=== PATIENT | female | born 2000 | race Caucasian/White ===

== ENCOUNTER 2022-02-12 11:18 | Day surgery (SDC) | payer OTHER ==
[2022-02-12 11:45] VITALS: BMI 30.1
[2022-02-12] MEDS ORDERED: hydrALAZINE 20 MG/ML VIAL SLOW IVP PRN (12:14)
[2022-02-12 13:24] LABS: Bilirubin Neg (Negative); Blood, Urine Negative (Negative); CAUTI Indications for Culture Pregnancy; Clarity Clear (Clear); Glucose, Urine (Dipstick) 250 mg/dL (Negative); Ketone, Urine 5 mg/dL (Negative); Leukocyte 25 (Negative); Nitrite Negative (Negative); Protein, Urine (Dipstick) 30 mg/dl (Neg-Trace); Specific Gravity, Urine 1.025 (1.005-1.030)
[2022-02-12 13:26] LABS: Urine Culture Reflex Yes Yes
[2022-02-12 13:34] LABS: Bacteria/HPF 3+ HPF (None Seen); RBC/HPF None Seen HPF (0-3); Squamous Epithelial 0-3 HPF (0-3); WBC/HPF 0-3 HPF (0-3)
[2022-02-12 16:07] LABS: Syphilis Antibody Nonreactive (Nonreactive); Syphilis Antibody Index 0.07 S/CO (<1.00 Non-Reactive)
[2022-02-12 16:10] LABS: HBSAg Index 0.15 S/CO (0-0.99); HIV (1/2) Antibody/Antigen Non-Reactive (NonReactive); HIV 1/2 INDEX 0.05 S/CO (<1.00); Hep B Surf Ag Non-Reactive S/CO (NonReactive)
[2022-02-12 20:36] LABS: Chlamydia by PCR Not Detected (NotDetected); GC by PCR Not Detected (NotDetected)
[2022-02-13 00:31] LABS: Hep C IgG Ab Non-Reactive (NonReactive); Hep C Index 0.07 S/CO (0-0.79)
== END 2022-02-12 15:25 | disposition home or self-care (01) ==
LOC: CSHLD/OP 11:18
PROVIDERS: ATTEND Obstetrics & Gynecology
DX: O47.03 False labor before 37 completed weeks of gestation, third trimester (principal); Z3A.33 33 weeks gestation of pregnancy
CPT/HCPCS: 36415; 76805; 81001; 86762; 86780; 86803; 87086; 87340; 87389; 87480; 87491; 87510; 87591; 87660; 99285

== ENCOUNTER 2022-03-27 09:23 | Inpatient (IN) | payer OTHER ==
[2022-03-27 10:40] VITALS: BMI 30.6
[2022-03-27] MEDS ORDERED: Butorphanol Tartrate 1 MG/ML VIAL SLOW IVP PRN (10:54)
[2022-03-27] MEDS ORDERED: hydrALAZINE 20 MG/ML VIAL SLOW IVP PRN ×3 (10:54→17:22)
[2022-03-27] MEDS ORDERED: Carboprost 250 MCG/ML AMP IM PRN (10:54)
[2022-03-27] MEDS ORDERED: Ibuprofen 800 MG TAB PO PRN (10:54)
[2022-03-27] MEDS ORDERED: Diphenoxylate HCl/Atropine Tablet PO PRN ×2 (10:54)
[2022-03-27] MEDS ORDERED: Ondansetron PF 4 MG/2 ML Vial IVP PRN ×3 (10:54→17:22)
[2022-03-27] MEDS ORDERED: Misoprostol 200 MCG TAB PR PRN (10:54)
[2022-03-27] MEDS ORDERED: Lidocaine 1% (PF) 30 ML VIAL SC PRN (10:54)
[2022-03-27] MEDS ORDERED: Fentanyl 100 MCG/2 ML VIAL SLOW IVP PRN (10:54)
[2022-03-27] MEDS ORDERED: Acetaminophen 500 MG TAB PO PRN ×2 (10:54→17:22)
[2022-03-27] MEDS ORDERED: Methylergonovine 0.2 MG/ML VIAL IM PRN (10:54)
[2022-03-27] MEDS ORDERED: Promethazine HCl 25 MG/ML VIAL IM PRN ×3 (10:54→17:22)
[2022-03-27] MEDS ORDERED: NS w/ Oxytocin 30 units 500 ML IV SCH ×3 (11:00→17:22)
[2022-03-27] MEDS ORDERED: Misoprostol 100 MCG TAB VAG SCH ×2 (11:00)
[2022-03-27] MEDS ORDERED: Lactated Ringer's 1,000 ML IV SCH (11:00)
[2022-03-27 11:09] LABS: Hemoglobin 13.8 g/dL (12.0-15.5); Mean Corpuscular Hemoglobin 29.6 pg (27.0-33.0); Mean Corpuscular Volume 84.4 fl (81.6-98.3); Mean Platelet Volume 11.2 fl (7.4-10.4); Platelet Count 268 10x3/uL (150-450); RBC Distribution Width 14.8 % (11.5-14.5); Red Blood Cell (RBC) Count 4.67 10x6/uL (3.90-5.03); White Blood Cell (WBC) Count 12.7 10x3/uL (3.5-10.5)
[2022-03-27] MEDS ORDERED: Fentanyl 2 mcg/Bup 0.1% Cadd 100 ML ONE (11:35)
[2022-03-27 11:38] LABS: HBSAg Index 0.15 S/CO (0-0.99); Hep B Surf Ag Non-Reactive S/CO (NonReactive)
[2022-03-27] MEDS ORDERED: diphenhydrAMINE 50 MG/ML VIAL IVP PRN (11:39)
[2022-03-27] MEDS ORDERED: Acetaminophen 325 MG TAB PO PRN (11:39)
[2022-03-27] MEDS ORDERED: Naloxone HCl 0.4 mg/ml Vial IVP PRN ×2 (11:39)
[2022-03-27] MEDS ORDERED: Moisturizing Cream (Eucerin) 113 GM JAR TOP PRN (11:39)
[2022-03-27] MEDS ORDERED: Lactated Ringer's 500 ML IV PRN (11:39)
[2022-03-27] MEDS ORDERED: ePHEDrine Sulfate 50 MG/10 ML VIAL SLOW IVP PRN (11:39)
[2022-03-27 11:40] LABS: Syphilis Antibody Nonreactive (Nonreactive); Syphilis Antibody Index 0.05 S/CO (<1.00 Non-Reactive)
[2022-03-27] MEDS ORDERED: Fentanyl 2 mcg/Bupivacaine 0.1% Cassette 100 ML EPIDURAL SCH (11:45)
[2022-03-27] MEDS ORDERED: Communication Order-Pharmacy FS SCH (11:45)
[2022-03-27] MEDS ORDERED: Boostrix 0.5 ML (Tdap) VIAL (>/=7 yrs of age) IM ONE (17:22)
[2022-03-27] MEDS ORDERED: Bisacodyl 10 MG SUPP PR PRN (17:22)
[2022-03-27] MEDS ORDERED: Benzocaine-Menthol 82.5 ML CAN TOP PRN (17:22)
[2022-03-27] MEDS ORDERED: Milk Of Magnesia 30 ML UDCUP PO PRN (17:22)
[2022-03-27] MEDS ORDERED: Misoprostol 200 MCG TAB VAG PRN (17:22)
[2022-03-27] MEDS ORDERED: Ferrous Sulfate 325 MG TAB PO SCH (17:45)
[2022-03-27] MEDS ORDERED: Bupivacaine HCl 0.5%/Epinephrine 1:200,000/PF 30 ml Vial ONE (18:33)
[2022-03-27] MEDS: Docusate 100 MG CAP PO SCH (21:41)
[2022-03-27] MEDS: Ibuprofen 800 MG TAB PO SCH (21:41)
[2022-03-28] MEDS: Ibuprofen 800 MG TAB PO SCH ×3 (05:28→21:27)
[2022-03-28] MEDS: Docusate 100 MG CAP PO SCH ×2 (08:42→21:28)
[2022-03-28] MEDS: Prenatal Vitamin 1 TAB PO SCH (08:42)
[2022-03-28] MEDS: Ferrous Sulfate 325 MG TAB PO SCH ×2 (08:42→15:45)
[2022-03-29] MEDS: Ibuprofen 800 MG TAB PO SCH (06:02)
[2022-03-29 07:34] VITALS: BP 91/51; TEMP 98
[2022-03-29] MEDS: Ferrous Sulfate 325 MG TAB PO SCH (07:59)
[2022-03-29] MEDS: Docusate 100 MG CAP PO SCH (07:59)
[2022-03-29] MEDS: Prenatal Vitamin 1 TAB PO SCH (07:59)
== END 2022-03-29 12:55 | disposition home or self-care (01) | DRG 807 ==
LOC: CSHLD/OP 09:23 → EEVIPCON 09:23 → CSHLD 11:24 → CSHPP 18:30
PROVIDERS: ADMIT Obstetrics & Gynecology; ATTEND Obstetrics & Gynecology
PROC: 0UQMXZZ Repair Vulva, External Approach (ICD-10-PCS; principal; 2022-03-27)
PROC: 10E0XZZ Delivery of Products of Conception, External Approach (ICD-10-PCS; 2022-03-27)
PROC: 3E0334Z Introduction of Serum, Toxoid and Vaccine into Peripheral Vein, Percutaneous Approach (ICD-10-PCS; 2022-03-28)
DX: O99.214 Obesity complicating childbirth (principal); Z37.0 Single live birth; O26.893 Other specified pregnancy related conditions, third trimester; E66.9 Obesity, unspecified; O70.0 First degree perineal laceration during delivery; Z20.822 Contact with and (suspected) exposure to COVID-19; Z3A.40 40 weeks gestation of pregnancy; Z67.11 Type A blood, Rh negative; F17.210 Nicotine dependence, cigarettes, uncomplicated; O99.334 Smoking (tobacco) complicating childbirth; J45.909 Unspecified asthma, uncomplicated; O99.52 Diseases of the respiratory system complicating childbirth; O99.344 Other mental disorders complicating childbirth; F31.9 Bipolar disorder, unspecified; I95.9 Hypotension, unspecified; O99.42 Diseases of the circulatory system complicating childbirth
CPT/HCPCS: 36415; 51702; 85027; 85461; 86780; 86850; 86870; 86900; 86901; 87340; 90384; 96372; 99285; U0003; U0005